=== PATIENT | female | born 1935 | race Caucasian/White ===

== ENCOUNTER 2017-01-25 09:10 | Emergency (ER) | payer BC ==
[2017-01-25 09:24] VITALS: BP 135/74; PULSE 96; TEMP 97.8; BMI 20.9
[2017-01-25] MEDS ORDERED: ACETAMINOPHEN 325 MG TABLET (FP) PO ONE (10:15)
[2017-01-25] MEDS ORDERED: ACETAMINOPHEN 325 MG TABLET (FP) ONE (10:19)
--- NOTE | 2017-01-25 10:21 | PDOC ---
History of Present Illness - General Chief Complaint: Pain, Acute Stated Complaint: PAIN/ BACK, LT FOOT Time Seen by Provider: 01/25/17 10:03 History Source: Patient Exam Limitations: No Limitations - History of Present Illness Initial Comments: 01/25/17 19:11 Chief complaint: Left-sided lower back pain and left lowerleg pain History of PRESENT ILLNESS: She is an 81-year-old female with history of arthritis here today complaining of left lower back pain for the last 3 days after trying to leFT us her daughter from the floor. Reports that she also feels pain and left lower leg however no no pain in left buttocks or left thigh. Patient denies any numbness of left leg or weakness of left leg. Patient denies any saddle anesthesia, incontinency. Has not taken anything for pain. . 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 ) Modifying Factors: improves with: immobilization Loss of Consciousness: no loss of consciousness Associated Symptoms (Fall): trouble walking (using a cane now ) Past History - Past Medical History Allergies/Adverse Reactions: Allergies Allergy/AdvReac Type Severity Reaction Status Date / Time Sulfa (Sulfonamide Allergy Intermediate Rash Verified 01/25/17 09:21 Antibiotics) [Sulfa(Sulfonamide Antibiotics)] Penicillins Allergy Hives Verified 01/25/17 09:21 Home Medications: Ambulatory Orders Allopurinol [Zyloprim -] 100 mg PO DAILY #0 tablet 04/08/12 Atorvastatin Ca [Lipitor] 20 mg PO HS #0 tablet 04/08/12 Lisinopril [Prinivil] 10 mg PO DAILY #0 tablet 04/08/12 Omeprazole [Prilosec (RX)] 20 mg PO DAILY 07/12/12 Anemia: No Asthma: No Cancer: Yes (SKIN CANCER) Cardiac Disorders: No CVA: No COPD: No CHF: No DVT: No Dementia: No Diabetes: No GI Disorders: Yes (stomach ulcer yrs ago) Disorders: Yes HTN: Yes Hypercholesterolemia: Yes Liver Disease: No Seizures: No Thyroid Disease: No Other medical history: gout - Surgical History Abdominal Surgery: No Appendectomy: No Cardiac Surgery: No Cholecystectomy: No Lung Surgery: No Neurologic Surgery: No Orthopedic Surgery: Yes (HIP REPLACEMENT) - Immunization History Immunization Up to Date: Yes - Suicide/Smoking/Psychosocial Hx Smoking History: Former smoker Have you smoked in the past 12 months: No If you are a former smoker, when did you quit?: 25yrs Information on smoking cessation initiated: No Hx Alcohol Use: No Drug/Substance Use Hx: No Substance Use Type: None Hx Substance Use Treatment: No Review of Systems - Review of Systems Able to Perform ROS?: Yes Constitutional: No: Symptoms Reported HEENTM: No: Symptoms Reported Respiratory: No: Symptoms reported Cardiac (ROS): No: Symptoms Reported ABD/GI: No: Symptoms Reported : No: Symptoms Reported Musculoskeletal: Yes: Back Pain, Joint Pain (left lower back ), Other (left lower lateral leg) Integumentary: No: Symptoms Reported Neurological: No: Symptoms reported *Physical Exam - Vital Signs Last Vital Signs Temp Pulse Resp BP Pulse Ox 97.8 F 96 H 14 135/74 98 01/25/17 09:21 01/25/17 09:21 01/25/17 09:21 01/25/17 09:21 01/25/17 09:21 - Physical Exam General Appearance: Yes: Appropriately Dressed Respiratory/Chest: positive: Lungs Clear, Normal Breath Sounds. negative: Chest Tender, Respiratory Distress Cardiovascular: positive: Regular Rhythm, Regular Rate, S1, S2 Vascular Pulses: Doralis-Pedis (L): 4+ Musculoskeletal: positive: Decreased Range of Motion (at waist with flexion ). negative: CVA Tenderness, CVA Tenderness (R), CVA Tenderness (L), Vertebral Tenderness Extremity: positive: Normal Capillary Refill, Normal Inspection, Normal Range of Motion Integumentary: positive: Normal Color Neurologic: positive: Alert, Normal Response, Motor Strength 5/5 (b/l legs ), Respond to painful stimul (b/l legs ), Responsive, Other (negative SLR b/l ). negative: Numbness, Sensory Deficit ED Treatment Course - RADIOLOGY Radiology Studies Ordered: Category Date Time Status SPINE-LUMBAR SACRAL [RAD] Stat Radiology 01/25/17 10:15 Ordered Medical Decision Making - Medical Decision Making 01/25/17 11:30 She is an 81-year-old female with history of arthritis here today complaining of left lower back pain for the last 3 days after trying to leFT us her daughter from the floor. Reports that she also feels pain and left lower leg however no no pain in left buttocks or left thigh. Patient denies any numbness of left leg or weakness of left leg. Patient denies any saddle anesthesia, incontinency. Has not taken anything for pain. . 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 arthritis noted Will have patient follow up with orthopedist within the next 2 days for further evaluation 01/25/17 19:14 *DC/Admit/Observation/Transfer Diagnosis at time of Disposition: Lumbar pain with radiation down left leg - Discharge Dispostion Disposition: HOME Condition at time of disposition: Stable - Referrals Referrals: Milad Turner MD [Primary Care Provider] - Guillaume Avendaño MD [Staff Physician] - - Patient Instructions Additional Instructions: 'Avoid any strenuous activities or a lot of walking Follow up with orthopedist as soon as possible call for an appointment today told him that she was seen here in the emergency room and need follow-up Return to emergency room if any numbness or weakness of left leg or numbness of private area or loss of control of bladder or bowel movement Take acetaminophen as needed as directed by manager e learning for pain Patient voiced understanding of discharge instructions and all questions were answered Thank you for choosing [facility] emergency room for further medical needs today - Post Discharge Activity
== END 2017-01-25 11:34 | disposition home or self-care (01) ==
LOC: JERFT 09:10
DX: M54.16 Radiculopathy, lumbar region (principal); M46.87 Other specified inflammatory spondylopathies, lumbosacral region; I10 Essential (primary) hypertension; E78.00 Pure hypercholesterolemia, unspecified; M10.9 Gout, unspecified; Z85.828 Personal history of other malignant neoplasm of skin; Z87.19 Personal history of other diseases of the digestive system; Z96.649 Presence of unspecified artificial hip joint; R26.89 Other abnormalities of gait and mobility; Z99.89 Dependence on other enabling machines and devices; Z87.891 Personal history of nicotine dependence
CPT/HCPCS: 72100-TC; 99281-25

== ENCOUNTER 2020-08-25 11:19 | Inpatient (IN) | payer BC ==
[2020-08-25] MEDS ORDERED: ONDANSETRON 4 MG/2 ML VIAL ONE (11:28)
[2020-08-25] MEDS ORDERED: ONDANSETRON 4 MG/2 ML VIAL IVPUSH ONE (11:30)
[2020-08-25] MEDS ORDERED: ACETAMINOPHEN 1000 MG/100 ML VIAL (NON FORMULARY) IVPB ONE (11:48)
[2020-08-25] MEDS ORDERED: VANCOMYCIN 1 GM in D5W (PRE-DOCKED) 1,000 MG/250 ML IVPB ONE (11:56)
[2020-08-25] MEDS ORDERED: AZTREONAM 1 GM VIAL (RESTRICTED TO ID) IVPB ONE (11:59)
[2020-08-25] MEDS ORDERED: ACETAMINOPHEN INJECTION 100 ML IVPB ONE (11:59)
[2020-08-25 12:07] VITALS: BMI 23.0
[2020-08-25] MEDS ORDERED: AZTREONAM 1 GM VIAL (RESTRICTED TO ID) ONE (12:18)
[2020-08-25] MEDS ORDERED: VANCOMYCIN 1 GRAM (PRE-DOCKED) 1,000 MG/250 ML BAG IVPB ONE (12:31)
[2020-08-25 13:10] LABS: BASO % 0.5 % (0-2.0); EOS % 0.3 % (0-4.5); HEMATOCRIT 41.7 % (32.4-45.2); HEMOGLOBIN 13.8 GM/dL (10.7-15.3); LYMPH % 20.6 % (8-40); MCH 30.7 pg (25.7-33.7); MEAN PLT VOLUME 8.9 fl (7.5-11.1); MONO % 3.5 % (3.8-10.2); NEUT % 75.1 % (42.8-82.8); PLATELET COUNT 248 10^3/uL (134-434); RBC 4.48 M/mm3 (3.60-5.2); RDW 14.3 % (11.6-15.6); WHITE BLOOD COUNT 14.4 K/mm3 (4.0-10.0)
[2020-08-25 13:19] LABS: EPI CELLS 6 /uL (0-25.1); HYALINE CASTS 1 /uL (0-3.1); PH,URINE 5.5 (5.0-8.0); URINE APPEARANCE CLOUDY; URINE BACTERIA >9,000 /uL (0-1359); URINE BILIRUBIN NEGATIVE (NEGATIVE); URINE COLOR YELLOW; URINE GLUCOSE (UA) NEGATIVE (NEGATIVE); URINE KETONE NEGATIVE (NEGATIVE); URINE LEUK ESTERASE 2+ (NEGATIVE); URINE NITRITE POSITIVE (NEGATIVE); URINE PROTEIN 3+ (NEGATIVE); URINE RBC 34 /uL (0-23.9); URINE UROBILINOGEN 0.2 mg/dL (0.2-1.0); URINE WBC 675 /uL (0-25.8)
[2020-08-25 13:39] LABS: VENOUS BASE EXCESS -8.9 mmol/L (-2-2); VENOUS O2 SATURATION 22.7 % (70-80); VENOUS PCO2 48.7 mmHg (38-52); VENOUS PH 7.212 (7.310-7.410)
[2020-08-25 13:39] LABS: LACTIC ACID 5.6 mmol/L (0.4-2.0)
[2020-08-25] MEDS ORDERED: SODIUM CHLORIDE 0.9% 500 ML INFUS.BAG IV ONE (13:42)
[2020-08-25 13:45] LABS: INR 1.02 (0.83-1.09); PROTHROMBIN TIME (PATIENT) 12.3 SEC (9.7-13.0)
[2020-08-25 13:48] LABS: ACTIVATED PTT 27.3 SECONDS (25.2-36.5)
[2020-08-25 13:56] LABS: CHLORIDE 102 mmol/L (98-107); SODIUM 137 mmol/L (136-145)
[2020-08-25 13:58] LABS: CALCIUM 10.2 mg/dL (8.5-10.1)
[2020-08-25 13:59] LABS: ANION GAP 13 MMOL/L (8-16); CO2 22 mmol/L (21-32); GLUCOSE,RANDOM 110 mg/dL (74-106)
[2020-08-25 14:02] LABS: CREATININE 1.6 mg/dL (0.55-1.3); SGOT/AST 72 U/L (15-37); SGPT/ALT 34 U/L (13-61)
[2020-08-25 14:04] LABS: BILIRUBIN,TOTAL 1.2 mg/dL (0.2-1); TOT PROT 7.7 g/dl (6.4-8.2)
[2020-08-25 14:05] LABS: ALK PHOS 104 U/L (45-117)
[2020-08-25] MEDS ORDERED: SODIUM CHLORIDE 500 ML IV STA ×2 (14:32→20:07)
[2020-08-25] MEDS ORDERED: ACETAMINOPHEN 500 MG TABLET (FP) PO PRN (18:42)
[2020-08-25] MEDS ORDERED: SODIUM CHLORIDE 1,000 ML IV SCH (18:45)
[2020-08-25] MEDS ORDERED: amLODIPine BESYLATE 5 MG TABLET (FP) PO PRN (20:10)
[2020-08-25] MEDS: ATORVASTATIN CA 20 MG TABLET (FP) PO SCH (22:27)
[2020-08-26] MEDS ORDERED: AZTREONAM 1 GM VIAL (RESTRICTED TO ID) ONE ×2 (01:05→08:22)
[2020-08-26] MEDS ORDERED: DEXTROSE 5%-WATER - 50 ML IVPB ONE ×2 (01:06→08:23)
[2020-08-26] MEDS: AZTREONAM 1 GM in DEXTROSE 5%-WATER - 50 ML IVPB SCH ×2 (01:17→09:08)
[2020-08-26] MEDS ORDERED: AZTREONAM 1 GM in DEXTROSE 5%-WATER - 50 ML IVPB SCH ×2 (02:00→19:00)
[2020-08-26] MEDS: HEPARIN NA (PORCINE) 5,000 UNITS/ML 1ML VIAL SQ SCH ×3 (05:23→21:33)
[2020-08-26 07:31] LABS: HEMATOCRIT 36.4 % (32.4-45.2); MCH 30.9 pg (25.7-33.7); MCHC 33.1 g/dl (32.0-36.0); MEAN CELL VOLUME 93.4 fl (80-96); MEAN PLT VOLUME 8.6 fl (7.5-11.1); PLATELET COUNT 191 10^3/uL (134-434); RBC 3.89 M/mm3 (3.60-5.2); WHITE BLOOD COUNT 14.9 K/mm3 (4.0-10.0)
[2020-08-26 07:46] LABS: CALCIUM 8.9 mg/dL (8.5-10.1)
[2020-08-26 07:47] LABS: BLOOD UREA NITROGEN 24.5 mg/dL (7-18); MAGNESIUM 2.2 mg/dL (1.8-2.4)
[2020-08-26 07:50] LABS: CREATININE 1.2 mg/dL (0.55-1.3); PHOSPHOROUS 2.6 mg/dL (2.5-4.9)
[2020-08-26] MEDS ORDERED: LACTATED RINGERS SOLUTION 1,000 ML/1,000 ML INFUS.BAG IV SCH (09:45)
[2020-08-26] MEDS ORDERED: MEROPENEM 500 MG VIAL (RESTRICTED TO ID) IVPB ONE ×2 (09:53→17:21)
[2020-08-26] MEDS ORDERED: DEXTROSE 5%-WATER 100 ML IVPB ONE ×2 (09:53→17:21)
[2020-08-26] MEDS: MEROPENEM 500 MG in DEXTROSE 5%-WATER 100 ML IVPB SCH ×2 (09:55→17:27)
[2020-08-26] MEDS ORDERED: LISINOPRIL 10 MG TABLET PO SCH (10:00)
[2020-08-26] MEDS ORDERED: FUROSEMIDE 40 MG/4 ML INJECTABLE VIAL IVPUSH ONE (19:27)
[2020-08-26] MEDS: LACTATED RINGERS SOLUTION 1,000 ML/1,000 ML INFUS.BAG IV SCH (20:01)
[2020-08-26] MEDS: ATORVASTATIN CA 20 MG TABLET (FP) PO SCH (21:33)
[2020-08-27] MEDS ORDERED: DEXTROSE 5%-WATER 100 ML IVPB ONE ×3 (01:10→17:37)
[2020-08-27] MEDS ORDERED: MEROPENEM 500 MG VIAL (RESTRICTED TO ID) IVPB ONE ×3 (01:10→17:37)
[2020-08-27] MEDS: MEROPENEM 500 MG in DEXTROSE 5%-WATER 100 ML IVPB SCH ×3 (01:24→17:44)
[2020-08-27 06:27] LABS: ARTERIAL BLOOD GAS BASE EXCESS 0.3 mmol/L (-2-2); ARTERIAL BLOOD GAS PO2 102.4 mmHg (80-100); ARTERIAL BLOOD GAS pH 7.462 (7.350-7.450)
[2020-08-27] MEDS: HEPARIN NA (PORCINE) 5,000 UNITS/ML 1ML VIAL SQ SCH ×3 (06:28→21:02)
[2020-08-27 06:39] LABS: ALLENS TEST POSITIVE
[2020-08-27 07:29] LABS: BASO % 0.9 % (0-2.0); EOS % 1.1 % (0-4.5); HEMATOCRIT 39.1 % (32.4-45.2); LYMPH % 23.2 % (8-40); MCH 30.8 pg (25.7-33.7); MCHC 33.4 g/dl (32.0-36.0); MEAN CELL VOLUME 92.3 fl (80-96); MEAN PLT VOLUME 9.3 fl (7.5-11.1); MONO % 12.5 % (3.8-10.2); NEUT % 62.3 % (42.8-82.8); PLATELET COUNT 224 10^3/uL (134-434); RBC 4.23 M/mm3 (3.60-5.2); RDW 14.1 % (11.6-15.6); WHITE BLOOD COUNT 13.1 K/mm3 (4.0-10.0)
[2020-08-27 07:57] LABS: CALCIUM 9.1 mg/dL (8.5-10.1)
[2020-08-27 07:58] LABS: BLOOD UREA NITROGEN 19.8 mg/dL (7-18); MAGNESIUM 1.9 mg/dL (1.8-2.4)
[2020-08-27 08:00] LABS: CREATININE 1.3 mg/dL (0.55-1.3)
[2020-08-27 08:01] LABS: PHOSPHOROUS 2.2 mg/dL (2.5-4.9)
[2020-08-27 08:02] LABS: BILIRUBIN,TOTAL 0.9 mg/dL (0.2-1); TOT PROT 5.9 g/dl (6.4-8.2)
[2020-08-27 08:29] LABS: ALBUMIN 2.7 g/dl (3.4-5.0)
[2020-08-27] MEDS: ATORVASTATIN CA 20 MG TABLET (FP) PO SCH (21:02)
[2020-08-27] MEDS: FUROSEMIDE 20 MG TABLET (FP) PO SCH (21:02)
[2020-08-27] MEDS: LIDOCAINE 5% TOPICAL PATCH TP SCH (21:02)
[2020-08-27] MEDS: POTASSIUM CHLORIDE TABS 10 MEQ TABLET.ER (FP) PO SCH (21:02)
[2020-08-27] MEDS: LACTATED RINGERS SOLUTION 1,000 ML/1,000 ML INFUS.BAG IV SCH (21:03)
[2020-08-27] MEDS: LIDOCAINE PATCH REMOVAL MC SCH (21:03)
[2020-08-28] MEDS ORDERED: MEROPENEM 500 MG VIAL (RESTRICTED TO ID) IVPB ONE ×3 (01:10→16:56)
[2020-08-28] MEDS ORDERED: DEXTROSE 5%-WATER 100 ML IVPB ONE ×3 (01:11→16:56)
[2020-08-28] MEDS: MEROPENEM 500 MG in DEXTROSE 5%-WATER 100 ML IVPB SCH ×3 (01:50→17:41)
[2020-08-28] MEDS: HEPARIN NA (PORCINE) 5,000 UNITS/ML 1ML VIAL SQ SCH ×3 (05:41→21:29)
[2020-08-28] MEDS: LACTATED RINGERS SOLUTION 1,000 ML/1,000 ML INFUS.BAG IV SCH ×2 (05:41→21:29)
[2020-08-28 06:37] LABS: BASO % 0.7 % (0-2.0); EOS % 2.6 % (0-4.5); HEMATOCRIT 39.2 % (32.4-45.2); LYMPH % 26.9 % (8-40); MCH 30.6 pg (25.7-33.7); MCHC 33.2 g/dl (32.0-36.0); MEAN CELL VOLUME 92.1 fl (80-96); MEAN PLT VOLUME 9.1 fl (7.5-11.1); MONO % 13.1 % (3.8-10.2); NEUT % 56.7 % (42.8-82.8); PLATELET COUNT 246 10^3/uL (134-434); RBC 4.25 M/mm3 (3.60-5.2); RDW 13.8 % (11.6-15.6); WHITE BLOOD COUNT 13.4 K/mm3 (4.0-10.0)
[2020-08-28 07:04] LABS: CALCIUM 8.8 mg/dL (8.5-10.1)
[2020-08-28 07:05] LABS: BLOOD UREA NITROGEN 26.1 mg/dL (7-18)
[2020-08-28 07:08] LABS: CREATININE 1.1 mg/dL (0.55-1.3)
[2020-08-28 09:42] LABS: ANISOCYTOSIS 0; MACROCYTOSIS 0; PLATELET ESTIMATE NORMAL
[2020-08-28] MEDS: LIDOCAINE 5% TOPICAL PATCH TP SCH (10:10)
[2020-08-28] MEDS: FUROSEMIDE 20 MG TABLET (FP) PO SCH (10:10)
[2020-08-28] MEDS: POTASSIUM CHLORIDE TABS 10 MEQ TABLET.ER (FP) PO SCH (10:10)
[2020-08-28] MEDS: LACTOBACILLUS ACIDOPHILUS 1 TABLET PO SCH (21:28)
[2020-08-28] MEDS: ATORVASTATIN CA 20 MG TABLET (FP) PO SCH (21:29)
[2020-08-28] MEDS: LIDOCAINE PATCH REMOVAL MC SCH (21:37)
[2020-08-29] MEDS ORDERED: MEROPENEM 500 MG VIAL (RESTRICTED TO ID) IVPB ONE ×3 (01:12→17:09)
[2020-08-29] MEDS ORDERED: DEXTROSE 5%-WATER 100 ML IVPB ONE ×3 (01:13→17:09)
[2020-08-29] MEDS: MEROPENEM 500 MG in DEXTROSE 5%-WATER 100 ML IVPB SCH ×3 (01:33→17:18)
[2020-08-29] MEDS: HEPARIN NA (PORCINE) 5,000 UNITS/ML 1ML VIAL SQ SCH ×2 (05:46→13:21)
[2020-08-29] MEDS: LACTATED RINGERS SOLUTION 1,000 ML/1,000 ML INFUS.BAG IV SCH ×3 (05:47→19:44)
[2020-08-29] MEDS ORDERED: dilTIAZem HCL 25 MG/5 ML - 5 ML VIAL IVPUSH ONE (06:32)
[2020-08-29 06:46] LABS: BASO % 0.6 % (0-2.0); EOS % 1.2 % (0-4.5); HEMATOCRIT 41.5 % (32.4-45.2); LYMPH % 30.6 % (8-40); MCH 30.6 pg (25.7-33.7); MCHC 33.7 g/dl (32.0-36.0); MEAN CELL VOLUME 90.8 fl (80-96); MEAN PLT VOLUME 8.2 fl (7.5-11.1); MONO % 14.7 % (3.8-10.2); NEUT % 52.9 % (42.8-82.8); PLATELET COUNT 265 10^3/uL (134-434); RBC 4.57 M/mm3 (3.60-5.2); WHITE BLOOD COUNT 13.7 K/mm3 (4.0-10.0)
[2020-08-29] MEDS ORDERED: DILTIAZEM INJECTION 125 MG in DEXTROSE 5%-WATER - 100 ML IVPB SCH (07:00)
[2020-08-29 07:07] LABS: BLOOD UREA NITROGEN 21.9 mg/dL (7-18); MAGNESIUM 1.9 mg/dL (1.8-2.4)
[2020-08-29 07:10] LABS: CREATININE 1.1 mg/dL (0.55-1.3)
[2020-08-29] MEDS: LACTOBACILLUS ACIDOPHILUS 1 TABLET PO SCH (10:01)
[2020-08-29] MEDS: POTASSIUM CHLORIDE TABS 10 MEQ TABLET.ER (FP) PO SCH (10:01)
[2020-08-29] MEDS: FUROSEMIDE 20 MG TABLET (FP) PO SCH (10:01)
[2020-08-29] MEDS: LIDOCAINE 5% TOPICAL PATCH TP SCH (10:04)
[2020-08-29] MEDS ORDERED: PT OWN MED DRAWER 7, Y5N ONE (10:09)
[2020-08-29] MEDS: dilTIAZem HCL 30 MG TABLET PO SCH ×2 (14:32→21:27)
[2020-08-29] MEDS: APIXABAN 2.5 MG TABLET PO SCH ×2 (14:32→21:26)
[2020-08-29] MEDS: LIDOCAINE PATCH REMOVAL MC SCH (21:27)
[2020-08-29] MEDS: ATORVASTATIN CA 20 MG TABLET (FP) PO SCH (21:27)
[2020-08-30] MEDS ORDERED: DEXTROSE 5%-WATER 100 ML IVPB ONE ×3 (00:49→17:06)
[2020-08-30] MEDS ORDERED: MEROPENEM 500 MG VIAL (RESTRICTED TO ID) IVPB ONE ×3 (00:49→17:06)
[2020-08-30] MEDS: MEROPENEM 500 MG in DEXTROSE 5%-WATER 100 ML IVPB SCH ×3 (01:03→17:23)
[2020-08-30] MEDS: dilTIAZem HCL 30 MG TABLET PO SCH ×2 (05:49→13:07)
[2020-08-30 07:13] LABS: BASO % 0.6 % (0-2.0); EOS % 2.4 % (0-4.5); HEMATOCRIT 40.3 % (32.4-45.2); HEMOGLOBIN 13.2 GM/dL (10.7-15.3); LYMPH % 32.4 % (8-40); MCH 30.3 pg (25.7-33.7); MCHC 32.8 g/dl (32.0-36.0); MEAN CELL VOLUME 92.4 fl (80-96); MONO % 12.8 % (3.8-10.2); NEUT % 51.8 % (42.8-82.8); PLATELET COUNT 303 10^3/uL (134-434); RBC 4.36 M/mm3 (3.60-5.2); RDW 13.8 % (11.6-15.6); WHITE BLOOD COUNT 12.5 K/mm3 (4.0-10.0)
[2020-08-30 07:30] LABS: BLOOD UREA NITROGEN 21.6 mg/dL (7-18); CALCIUM 9.2 mg/dL (8.5-10.1)
[2020-08-30] MEDS: APIXABAN 2.5 MG TABLET PO SCH (09:30)
[2020-08-30] MEDS: POTASSIUM CHLORIDE TABS 10 MEQ TABLET.ER (FP) PO SCH (09:30)
[2020-08-30] MEDS: FUROSEMIDE 20 MG TABLET (FP) PO SCH (09:31)
[2020-08-30] MEDS: LACTOBACILLUS ACIDOPHILUS 1 TABLET PO SCH (09:31)
[2020-08-30] MEDS: LIDOCAINE 5% TOPICAL PATCH TP SCH (09:31)
[2020-08-30] MEDS: LACTATED RINGERS SOLUTION 1,000 ML/1,000 ML INFUS.BAG IV SCH (12:55)
[2020-08-30] MEDS ORDERED: MAG HYDROX/AL HYDROX/SIMETH 30 ML UNIT-DOSE CUP PO PRN (18:08)
[2020-08-30] MEDS: ONDANSETRON 4 MG/2 ML VIAL IVPUSH SCH (18:52)
[2020-08-30] MEDS: PANTOPRAZOLE SODIUM 40 MG VIAL IVPUSH SCH (21:01)
[2020-08-30] MEDS: ATORVASTATIN CA 20 MG TABLET (FP) PO SCH (21:33)
[2020-08-30] MEDS: LIDOCAINE PATCH REMOVAL MC SCH (21:35)
[2020-08-31] MEDS ORDERED: MEROPENEM 500 MG VIAL (RESTRICTED TO ID) IVPB ONE ×3 (02:03→17:50)
[2020-08-31] MEDS ORDERED: DEXTROSE 5%-WATER 100 ML IVPB ONE ×3 (02:03→17:51)
[2020-08-31] MEDS: MEROPENEM 500 MG in DEXTROSE 5%-WATER 100 ML IVPB SCH ×3 (02:06→18:03)
[2020-08-31] MEDS: ONDANSETRON 4 MG/2 ML VIAL IVPUSH SCH ×3 (03:11→18:03)
[2020-08-31 08:18] LABS: BASO % 0.5 % (0-2.0); EOS % 1.4 % (0-4.5); HEMATOCRIT 39.3 % (32.4-45.2); HEMOGLOBIN 12.9 GM/dL (10.7-15.3); LYMPH % 20.7 % (8-40); MCH 30.4 pg (25.7-33.7); MCHC 32.8 g/dl (32.0-36.0); MEAN CELL VOLUME 92.8 fl (80-96); MEAN PLT VOLUME 8.7 fl (7.5-11.1); MONO % 12.2 % (3.8-10.2); NEUT % 65.2 % (42.8-82.8); PLATELET COUNT 359 10^3/uL (134-434); RBC 4.24 M/mm3 (3.60-5.2); RDW 13.9 % (11.6-15.6); WHITE BLOOD COUNT 15.7 K/mm3 (4.0-10.0)
[2020-08-31 08:43] LABS: ALBUMIN 2.6 g/dl (3.4-5.0)
[2020-08-31 08:45] LABS: CALCIUM 9.1 mg/dL (8.5-10.1)
[2020-08-31 08:46] LABS: BILIRUBIN,DIRECT 0.2 mg/dL (0.0-0.2); BLOOD UREA NITROGEN 18.6 mg/dL (7-18)
[2020-08-31 08:48] LABS: BILIRUBIN,TOTAL 0.6 mg/dL (0.2-1)
[2020-08-31] MEDS: LACTOBACILLUS ACIDOPHILUS 1 TABLET PO SCH (10:17)
[2020-08-31] MEDS: FUROSEMIDE 20 MG TABLET (FP) PO SCH (10:18)
[2020-08-31] MEDS: PANTOPRAZOLE SODIUM 40 MG VIAL IVPUSH SCH ×2 (10:18→21:17)
[2020-08-31] MEDS: LIDOCAINE 5% TOPICAL PATCH TP SCH (10:18)
[2020-08-31] MEDS: ATORVASTATIN CA 20 MG TABLET (FP) PO SCH (21:18)
[2020-08-31] MEDS: LIDOCAINE PATCH REMOVAL MC SCH (21:18)
[2020-09-01] MEDS ORDERED: DEXTROSE 5%-WATER 100 ML IVPB ONE ×3 (02:34→09:27)
[2020-09-01] MEDS ORDERED: MEROPENEM 500 MG VIAL (RESTRICTED TO ID) IVPB ONE ×3 (02:34→09:27)
[2020-09-01] MEDS: MEROPENEM 500 MG in DEXTROSE 5%-WATER 100 ML IVPB SCH ×2 (02:40→09:38)
[2020-09-01] MEDS: ONDANSETRON 4 MG/2 ML VIAL IVPUSH SCH ×3 (02:59→17:39)
[2020-09-01 06:43] LABS: BASO % 0.9 % (0-2.0); EOS % 3.3 % (0-4.5); HEMATOCRIT 41.4 % (32.4-45.2); HEMOGLOBIN 13.5 GM/dL (10.7-15.3); LYMPH % 24.6 % (8-40); MCH 30.2 pg (25.7-33.7); MCHC 32.7 g/dl (32.0-36.0); MEAN CELL VOLUME 92.1 fl (80-96); MEAN PLT VOLUME 8.3 fl (7.5-11.1); MONO % 10.7 % (3.8-10.2); NEUT % 60.5 % (42.8-82.8); PLATELET COUNT 370 10^3/uL (134-434); RBC 4.49 M/mm3 (3.60-5.2); RDW 14.4 % (11.6-15.6); WHITE BLOOD COUNT 14.1 K/mm3 (4.0-10.0)
[2020-09-01 06:55] LABS: BLOOD UREA NITROGEN 20.5 mg/dL (7-18); CALCIUM 9.6 mg/dL (8.5-10.1)
[2020-09-01 06:59] LABS: CREATININE 1.2 mg/dL (0.55-1.3)
[2020-09-01] MEDS: LIDOCAINE 5% TOPICAL PATCH TP SCH (10:37)
[2020-09-01] MEDS: PANTOPRAZOLE SODIUM 40 MG VIAL IVPUSH SCH ×2 (10:37→21:25)
[2020-09-01] MEDS: LACTOBACILLUS ACIDOPHILUS 1 TABLET PO SCH (10:37)
[2020-09-01] MEDS: FUROSEMIDE 20 MG TABLET (FP) PO SCH (10:37)
[2020-09-01] MEDS: CEFUROXIME AXETIL 500 MG TABLET PO SCH (17:39)
[2020-09-01] MEDS: ATORVASTATIN CA 20 MG TABLET (FP) PO SCH (21:25)
[2020-09-01] MEDS: LIDOCAINE PATCH REMOVAL MC SCH (21:25)
[2020-09-02] MEDS: ONDANSETRON 4 MG/2 ML VIAL IVPUSH SCH ×2 (01:23→09:25)
[2020-09-02] MEDS ORDERED: PT OWN MED DRAWER 7, Y5N ONE (08:34)
[2020-09-02] MEDS: CEFUROXIME AXETIL 500 MG TABLET PO SCH (08:51)
[2020-09-02] MEDS: LIDOCAINE 5% TOPICAL PATCH TP SCH (09:01)
[2020-09-02] MEDS: PANTOPRAZOLE SODIUM 40 MG VIAL IVPUSH SCH (09:01)
[2020-09-02] MEDS: LACTOBACILLUS ACIDOPHILUS 1 TABLET PO SCH (09:02)
[2020-09-02 10:07] VITALS: BP 149/71; PULSE 77; TEMP 98.1
== END 2020-09-02 13:25 | disposition home health service (06) | DRG 872 ==
LOC: JER 11:19 → JERBED 11:50 → J4S 22:04
PROVIDERS: ATTEND Internal Medicine
DX: A41.50 Gram-negative sepsis, unspecified (principal); N39.0 Urinary tract infection, site not specified; E87.2 Acidosis; I47.1 Supraventricular tachycardia; I48.92 Unspecified atrial flutter; I24.8 Other forms of acute ischemic heart disease; R65.20 Severe sepsis without septic shock; E78.5 Hyperlipidemia, unspecified; Z88.0 Allergy status to penicillin; K21.9 Gastro-esophageal reflux disease without esophagitis; M10.9 Gout, unspecified; I10 Essential (primary) hypertension; G89.29 Other chronic pain; Z90.5 Acquired absence of kidney; F03.90 Unspecified dementia, unspecified severity, without behavioral disturbance, psychotic disturbance, mood disturbance, and anxiety; K29.70 Gastritis, unspecified, without bleeding; I48.91 Unspecified atrial fibrillation; R73.03 Prediabetes
CPT/HCPCS: 36415; 36600; 71045-TC-FY; 76705-TC; 76775-TC; 76856-TC; 80048; 80053; 80061; 80076; 81003; 82553; 82803; 83036; 83605; 83721; 83735; 83880; 84100; 84443; 84484; 85025; 85027; 85610; 85730; 86850; 86900; 86901; 87040; 87086; 87186; 93005; 93010; 93306-TC; 93970-TC; 97116-GP; 97161-GP; 99285-25; C9803; J0131; J1644; U0003; U0005

== ENCOUNTER 2020-10-13 11:30 | Observation (INO) | payer BC ==
[2020-10-13 11:45] VITALS: BMI 22.6
[2020-10-13] MEDS ORDERED: MAG HYDROX/AL HYDROX/SIMETH -MYLANTA- ORAL SUSPENSION PO ONE (12:14)
[2020-10-13] MEDS ORDERED: FAMOTIDINE 20 MG TABLET PO ONE (12:14)
[2020-10-13] MEDS ORDERED: FAMOTIDINE 20 MG/50 ML IVPB 20 MG/50 ML MG IVPB ONE ×2 (12:17→12:18)
[2020-10-13] MEDS ORDERED: MAG HYDROX/AL HYDROX/SIMETH 30 ML UNIT-DOSE CUP ONE (12:17)
[2020-10-13 12:31] LABS: INR 1.38 (0.83-1.09); PROTHROMBIN TIME (PATIENT) 16.5 SEC (9.7-13.0)
[2020-10-13 12:33] LABS: ACTIVATED PTT 31.5 SECONDS (25.2-36.5)
[2020-10-13 12:42] LABS: ALBUMIN 3.8 g/dl (3.4-5.0); ANION GAP 7 MMOL/L (8-16); BLOOD UREA NITROGEN 26.8 mg/dL (7-18); CALCIUM 9.8 mg/dL (8.5-10.1); CHLORIDE 104 mmol/L (98-107); CO2 25 mmol/L (21-32); SODIUM 136 mmol/L (136-145)
[2020-10-13 12:43] LABS: GLUCOSE,RANDOM 114 mg/dL (74-106)
[2020-10-13 12:45] LABS: SGPT/ALT 25 U/L (13-61)
[2020-10-13 12:46] LABS: CREATININE 1.3 mg/dL (0.55-1.3); SGOT/AST 22 U/L (15-37)
[2020-10-13 12:47] LABS: BILIRUBIN,TOTAL 0.6 mg/dL (0.2-1); TOT PROT 7.2 g/dl (6.4-8.2)
[2020-10-13 12:48] LABS: ALK PHOS 110 U/L (45-117); BASO % 1.2 % (0-2.0); EOS % 1.6 % (0-4.5); HEMOGLOBIN 13.1 GM/dL (10.7-15.3); LYMPH % 29.9 % (8-40); MCH 31.5 pg (25.7-33.7); MCHC 34.4 g/dl (32.0-36.0); MEAN CELL VOLUME 91.4 fl (80-96); MEAN PLT VOLUME 8.3 fl (7.5-11.1); MONO % 9.8 % (3.8-10.2); NEUT % 57.5 % (42.8-82.8); PLATELET COUNT 279 10^3/uL (134-434); RBC 4.16 M/mm3 (3.60-5.2); RDW 14.2 % (11.6-15.6); WHITE BLOOD COUNT 10.9 K/mm3 (4.0-10.0)
[2020-10-13 19:09] LABS: LIPASE 212 U/L (73-393); MAGNESIUM 2.1 mg/dL (1.8-2.4)
[2020-10-13 19:12] LABS: PHOSPHOROUS 3.2 mg/dL (2.5-4.9)
[2020-10-13] MEDS: traMADol HCL 50 MG TABLET PO SCH (19:50)
[2020-10-13] MEDS ORDERED: ATORVASTATIN CA 20 MG TABLET (FP) PO SCH (22:00)
[2020-10-14] MEDS: APIXABAN 2.5 MG TABLET PO SCH ×2 (01:46→09:26)
[2020-10-14] MEDS: MAG HYDROX/AL HYDROX/SIMETH 30 ML UNIT-DOSE CUP PO SCH ×3 (01:46→12:26)
[2020-10-14] MEDS: traMADol HCL 50 MG TABLET PO SCH ×3 (01:46→12:26)
[2020-10-14 08:05] LABS: BASO % 0.9 % (0-2.0); EOS % 5.3 % (0-4.5); HEMOGLOBIN 13.9 GM/dL (10.7-15.3); LYMPH % 44.3 % (8-40); MCH 31.9 pg (25.7-33.7); MCHC 34.8 g/dl (32.0-36.0); MEAN CELL VOLUME 91.6 fl (80-96); MEAN PLT VOLUME 8.4 fl (7.5-11.1); NEUT % 39.5 % (42.8-82.8); PLATELET COUNT 267 10^3/uL (134-434); RBC 4.37 M/mm3 (3.60-5.2); RDW 14.3 % (11.6-15.6); WHITE BLOOD COUNT 9.9 K/mm3 (4.0-10.0)
[2020-10-14 08:11] LABS: CHLORIDE 109 mmol/L (98-107); SODIUM 138 mmol/L (136-145)
[2020-10-14 08:16] LABS: CALCIUM 9.4 mg/dL (8.5-10.1); GLUCOSE,RANDOM 89 mg/dL (74-106)
[2020-10-14 08:17] LABS: ANION GAP 7 MMOL/L (8-16); BLOOD UREA NITROGEN 21.8 mg/dL (7-18); CO2 23 mmol/L (21-32)
[2020-10-14 08:20] LABS: CREATININE 1.3 mg/dL (0.55-1.3)
[2020-10-14] MEDS ORDERED: ALLOPURINOL 100 MG TABLET (FP) PO SCH (10:00)
[2020-10-14] MEDS ORDERED: PANTOPRAZOLE 20 MG TABLET PO SCH (10:00)
[2020-10-14] MEDS ORDERED: LISINOPRIL 10 MG TABLET PO SCH (10:00)
[2020-10-14 14:39] VITALS: BP 153/68; PULSE 67; TEMP 97.3
== END 2020-10-14 17:25 | disposition home or self-care (01) ==
LOC: JER 11:30 → JERBED 18:21 → J4W 21:07
PROVIDERS: ADMIT Internal Medicine; ATTEND Internal Medicine
PROC: 3E033GC Introduction of Other Therapeutic Substance into Peripheral Vein, Percutaneous Approach (ICD-10-PCS; principal; 2020-10-13)
DX: R07.9 Chest pain, unspecified (principal); Z88.0 Allergy status to penicillin; Z88.2 Allergy status to sulfonamides; K21.9 Gastro-esophageal reflux disease without esophagitis; I48.91 Unspecified atrial fibrillation; E78.5 Hyperlipidemia, unspecified; I10 Essential (primary) hypertension; Z90.5 Acquired absence of kidney
CPT/HCPCS: 36415; 71046-TC-FY; 80048; 80053; 82550; 83690; 83735; 84100; 84484; 85025; 85610; 85730; 93005; 93010; 96365; 99285-25; C9803; G0378; U0003; U0005

== ENCOUNTER 2021-12-22 08:42 | Inpatient (IN) | payer BC ==
[2021-12-22] MEDS ORDERED: LIDOCAINE 5% TOPICAL PATCH TP ONE (09:44)
[2021-12-22] MEDS ORDERED: ACETAMINOPHEN 1000 MG/100 ML BAG IVPB ONE (09:45)
[2021-12-22] MEDS ORDERED: LIDOCAINE 5% TOPICAL PATCH ONE ×2 (09:53)
[2021-12-22] MEDS ORDERED: ACETAMINOPHEN INJECTION 100 ML IVPB ONE (09:53)
[2021-12-22 10:41] LABS: EPI CELLS 7 /uL (0-25.1); HYALINE CASTS 1 /uL (0-3.1); URINE APPEARANCE CLOUDY; URINE BACTERIA >9,000 /uL (0-1359); URINE BILIRUBIN NEGATIVE (NEGATIVE); URINE COLOR YELLOW; URINE GLUCOSE (UA) NEGATIVE (NEGATIVE); URINE KETONE NEGATIVE (NEGATIVE); URINE LEUK ESTERASE 2+ (NEGATIVE); URINE NITRITE POSITIVE (NEGATIVE); URINE PROTEIN 1+ (NEGATIVE); URINE RBC 7 /uL (0-23.9); URINE UROBILINOGEN 0.2 mg/dL (0.2-1.0); URINE WBC 299 /uL (0-25.8)
[2021-12-22] MEDS ORDERED: CEFTRIAXONE 1 GM in DEXTROSE 5%-WATER - 100 ML IVPB ONE (11:30)
[2021-12-22 12:08] LABS: HEMATOCRIT 44.4 % (32.4-45.2); HEMOGLOBIN 14.6 GM/dL (10.7-15.3); MCH 30.7 pg (25.7-33.7); MCHC 32.9 g/dl (32.0-36.0); MEAN CELL VOLUME 93.2 fl (80-96); MEAN PLT VOLUME 8.4 fl (7.5-11.1); PLATELET COUNT 205 10^3/uL (134-434); RBC 4.76 M/mm3 (3.60-5.2); RDW 14.1 % (11.6-15.6); WHITE BLOOD COUNT 7.4 K/mm3 (4.0-10.0)
[2021-12-22 12:28] LABS: ALBUMIN 3.9 g/dl (3.4-5.0); BLOOD UREA NITROGEN 36.6 mg/dL (7-18); CALCIUM 9.8 mg/dL (8.5-10.1)
[2021-12-22] MEDS ORDERED: CEFTRIAXONE 1 GM/50 ML BAG ONE (12:28)
[2021-12-22 12:32] LABS: CREATININE 1.7 mg/dL (0.55-1.3)
[2021-12-22 12:33] LABS: BILIRUBIN,TOTAL 0.6 mg/dL (0.2-1); TOT PROT 7.4 g/dl (6.4-8.2)
[2021-12-22] MEDS ORDERED: SODIUM CHLORIDE 0.9% 500 ML INFUS.BAG IV ONE (12:48)
[2021-12-22 14:28] LABS: ANISOCYTOSIS 0; MACROCYTOSIS 1+
[2021-12-22] MEDS ORDERED: LIDOCAINE PATCH REMOVAL MC SCH (22:00)
[2021-12-22 23:17] VITALS: RESP 18; BMI 21.2
[2021-12-23] MEDS ORDERED: ACETAMINOPHEN 325 MG TABLET (FP) PO PRN (06:49)
[2021-12-23] MEDS ORDERED: VANCOMYCIN 1 GM/200 ML PREMIX BAG IVPB SCH (08:00)
[2021-12-23] MEDS: CEFTRIAXONE 1 GM in DEXTROSE 5%-WATER - 50 ML IVPB SCH (09:34)
[2021-12-23] MEDS: APIXABAN 2.5 MG TABLET PO SCH ×2 (09:34→21:28)
[2021-12-23] MEDS ORDERED: ENOXAPARIN NA (PORCINE) 40 MG/0.4 ML DISP.SYRIN SQ SCH (10:00)
[2021-12-23 10:11] LABS: BASO % 0.7 % (0-2.0); EOS % 0.2 % (0-4.5); HEMATOCRIT 43.7 % (32.4-45.2); HEMOGLOBIN 13.9 GM/dL (10.7-15.3); LYMPH % 32.7 % (8-40); MCH 29.7 pg (25.7-33.7); MCHC 31.7 g/dl (32.0-36.0); MEAN CELL VOLUME 93.9 fl (80-96); MEAN PLT VOLUME 9.2 fl (7.5-11.1); MONO % 14.8 % (3.8-10.2); NEUT % 51.6 % (42.8-82.8); PLATELET COUNT 195 10^3/uL (134-434); RBC 4.66 M/mm3 (3.60-5.2); RDW 14.1 % (11.6-15.6); WHITE BLOOD COUNT 6.6 K/mm3 (4.0-10.0)
[2021-12-23 10:29] LABS: ALBUMIN 3.5 g/dl (3.4-5.0); CALCIUM 8.9 mg/dL (8.5-10.1)
[2021-12-23 10:30] LABS: BLOOD UREA NITROGEN 37.3 mg/dL (7-18)
[2021-12-23 10:31] LABS: CREATININE 1.7 mg/dL (0.55-1.3); PHOSPHOROUS 2.8 mg/dL (2.5-4.9)
[2021-12-23 10:33] LABS: BILIRUBIN,TOTAL 0.4 mg/dL (0.2-1); TOT PROT 6.8 g/dl (6.4-8.2)
[2021-12-23] MEDS: SODIUM CHLORIDE 1,000 ML IV SCH (15:19)
[2021-12-23] MEDS: ASCORBIC ACID 250 MG TABLET (FP) PO SCH (15:20)
[2021-12-23] MEDS: ZINC SULFATE 220 MG CAPSULE (FP) PO SCH (15:20)
[2021-12-23] MEDS: ATORVASTATIN CA 20 MG TABLET (FP) PO SCH (21:28)
[2021-12-24] MEDS ORDERED: VANCOMYCIN 1 GM/200 ML PREMIX BAG IVPB SCH (08:00)
[2021-12-24] MEDS: CEFTRIAXONE 1 GM in DEXTROSE 5%-WATER - 50 ML IVPB SCH (10:18)
[2021-12-24] MEDS: APIXABAN 2.5 MG TABLET PO SCH ×2 (10:19→21:31)
[2021-12-24] MEDS: ASCORBIC ACID 250 MG TABLET (FP) PO SCH (10:19)
[2021-12-24] MEDS: ZINC SULFATE 220 MG CAPSULE (FP) PO SCH (10:19)
[2021-12-24 11:30] LABS: BASO % 0.9 % (0-2.0); EOS % 0.1 % (0-4.5); HEMATOCRIT 43.6 % (32.4-45.2); HEMOGLOBIN 14.6 GM/dL (10.7-15.3); LYMPH % 46.9 % (8-40); MCH 30.7 pg (25.7-33.7); MCHC 33.4 g/dl (32.0-36.0); MEAN PLT VOLUME 8.4 fl (7.5-11.1); MONO % 14.6 % (3.8-10.2); NEUT % 37.5 % (42.8-82.8); PLATELET COUNT 181 10^3/uL (134-434); RBC 4.74 M/mm3 (3.60-5.2); WHITE BLOOD COUNT 6.4 K/mm3 (4.0-10.0)
[2021-12-24 11:55] LABS: CALCIUM 9.3 mg/dL (8.5-10.1)
[2021-12-24 11:57] LABS: ALBUMIN 3.6 g/dl (3.4-5.0); BLOOD UREA NITROGEN 44.8 mg/dL (7-18); MAGNESIUM 2.1 mg/dL (1.8-2.4)
[2021-12-24 11:58] LABS: CREATININE 1.8 mg/dL (0.55-1.3)
[2021-12-24 12:00] LABS: BILIRUBIN,TOTAL 0.3 mg/dL (0.2-1); PHOSPHOROUS 2.8 mg/dL (2.5-4.9); TOT PROT 7.2 g/dl (6.4-8.2)
[2021-12-24] MEDS: ATORVASTATIN CA 20 MG TABLET (FP) PO SCH (21:31)
[2021-12-25] MEDS: SODIUM CHLORIDE 1,000 ML IV SCH (06:15)
[2021-12-25] MEDS: CEFTRIAXONE 1 GM in DEXTROSE 5%-WATER - 50 ML IVPB SCH (09:11)
[2021-12-25] MEDS: ZINC SULFATE 220 MG CAPSULE (FP) PO SCH (09:12)
[2021-12-25] MEDS: APIXABAN 2.5 MG TABLET PO SCH ×2 (09:12→21:33)
[2021-12-25] MEDS: ASCORBIC ACID 250 MG TABLET (FP) PO SCH (09:12)
[2021-12-25 10:57] LABS: BASO % 0.4 % (0-2.0); EOS % 0.5 % (0-4.5); HEMATOCRIT 39.5 % (32.4-45.2); HEMOGLOBIN 13.4 GM/dL (10.7-15.3); LYMPH % 49.5 % (8-40); MCH 31.1 pg (25.7-33.7); MCHC 33.8 g/dl (32.0-36.0); MEAN CELL VOLUME 91.8 fl (80-96); MEAN PLT VOLUME 8.4 fl (7.5-11.1); MONO % 14.5 % (3.8-10.2); NEUT % 35.1 % (42.8-82.8); PLATELET COUNT 157 10^3/uL (134-434); RDW 13.8 % (11.6-15.6); WHITE BLOOD COUNT 4.6 K/mm3 (4.0-10.0)
[2021-12-25 11:18] LABS: CHLORIDE 110 mmol/L (98-107); SODIUM 141 mmol/L (136-145)
[2021-12-25 11:20] LABS: CALCIUM 8.5 mg/dL (8.5-10.1)
[2021-12-25 11:21] LABS: ANION GAP 9 MMOL/L (8-16); BLOOD UREA NITROGEN 39.7 mg/dL (7-18); CO2 21 mmol/L (21-32)
[2021-12-25 11:22] LABS: GLUCOSE,RANDOM 90 mg/dL (74-106)
[2021-12-25 11:24] LABS: CREATININE 1.4 mg/dL (0.55-1.3); PHOSPHOROUS 2.6 mg/dL (2.5-4.9); SGOT/AST 51 U/L (15-37); SGPT/ALT 34 U/L (13-61)
[2021-12-25 11:25] LABS: TOT PROT 6.3 g/dl (6.4-8.2)
[2021-12-25 11:27] LABS: ALK PHOS 86 U/L (45-117)
[2021-12-25 11:41] LABS: BILIRUBIN,TOTAL 0.3 mg/dL (0.2-1)
[2021-12-25] MEDS: ATORVASTATIN CA 20 MG TABLET (FP) PO SCH (21:33)
[2021-12-26] MEDS: SODIUM CHLORIDE 1,000 ML IV SCH (05:14)
[2021-12-26 09:12] VITALS: BP 145/71; PULSE 71; TEMP 98.1
[2021-12-26] MEDS: ASCORBIC ACID 250 MG TABLET (FP) PO SCH (09:45)
[2021-12-26] MEDS: APIXABAN 2.5 MG TABLET PO SCH (09:45)
[2021-12-26] MEDS: ZINC SULFATE 220 MG CAPSULE (FP) PO SCH (09:45)
[2021-12-26] MEDS: CEFTRIAXONE 1 GM in DEXTROSE 5%-WATER - 50 ML IVPB SCH (09:45)
[2021-12-26 13:36] LABS: HEMATOCRIT 42.4 % (32.4-45.2); MCH 30.2 pg (25.7-33.7); MEAN CELL VOLUME 91.5 fl (80-96); MEAN PLT VOLUME 9.1 fl (7.5-11.1); PLATELET COUNT 182 10^3/uL (134-434); RBC 4.63 M/mm3 (3.60-5.2); RDW 14.2 % (11.6-15.6); WHITE BLOOD COUNT 5.3 K/mm3 (4.0-10.0)
[2021-12-26 13:39] LABS: BLOOD UREA NITROGEN 29.3 mg/dL (7-18); CALCIUM 8.9 mg/dL (8.5-10.1); MAGNESIUM 1.8 mg/dL (1.8-2.4)
[2021-12-26 13:42] LABS: CREATININE 1.3 mg/dL (0.55-1.3); PHOSPHOROUS 2.6 mg/dL (2.5-4.9)
== END 2021-12-26 18:48 | disposition home health service (06) | DRG 689 ==
LOC: JER 08:42 → JERBED 18:28 → J6S 20:00 → OBSVTOIN 12-23 06:48 → J6S 12-26 00:11
PROVIDERS: ADMIT Internal Medicine; ATTEND Internal Medicine
DX: N39.0 Urinary tract infection, site not specified (principal); G93.41 Metabolic encephalopathy; U07.1 COVID-19; N17.9 Acute kidney failure, unspecified; I10 Essential (primary) hypertension; E78.00 Pure hypercholesterolemia, unspecified; I48.0 Paroxysmal atrial fibrillation
CPT/HCPCS: 0241U-QW; 36415; 71045-TC-FY; 80048; 80053; 81003; 83735; 84100; 85025; 85027; 86140; 87040; 87086; 87186; 93005; 93010; 97116-GP; 97162-GP; 99285-25; G0378

== ENCOUNTER 2022-02-07 17:48 | Observation (INO) | payer BC ==
[2022-02-07 18:08] VITALS: BMI 21.0
[2022-02-07] MEDS ORDERED: SODIUM CHLORIDE 500 ML IV STA ×2 (18:53→23:43)
[2022-02-07] MEDS ORDERED: CEFTRIAXONE 1,000 MG in DEXTROSE 5%-WATER - 50 ML IVPB ONE (19:06)
[2022-02-07] MEDS ORDERED: CEFTRIAXONE 1 GM/50 ML BAG ONE (19:33)
[2022-02-07 20:35] LABS: BASO % 0.3 % (0-2.0); EOS % 0.6 % (0-4.5); HEMATOCRIT 44.9 % (32.4-45.2); HEMOGLOBIN 14.7 GM/dL (10.7-15.3); LYMPH % 5.8 % (8-40); MCH 30.1 pg (25.7-33.7); MCHC 32.8 g/dl (32.0-36.0); MEAN CELL VOLUME 91.8 fl (80-96); MEAN PLT VOLUME 8.2 fl (7.5-11.1); MONO % 5.1 % (3.8-10.2); NEUT % 88.2 % (42.8-82.8); PLATELET COUNT 268 10^3/uL (134-434); RBC 4.89 M/mm3 (3.60-5.2); RDW 14.3 % (11.6-15.6); WHITE BLOOD COUNT 10.5 K/mm3 (4.0-10.0)
[2022-02-07 20:38] LABS: EPI CELLS 8 /uL (0-25.1); HYALINE CASTS 0 /uL (0-3.1); PH,URINE 6.5 (5.0-8.0); URINE APPEARANCE CLEAR; URINE BACTERIA 23 /uL (0-1359); URINE BILIRUBIN NEGATIVE (NEGATIVE); URINE COLOR YELLOW; URINE GLUCOSE (UA) NEGATIVE (NEGATIVE); URINE KETONE NEGATIVE (NEGATIVE); URINE LEUK ESTERASE NEGATIVE (NEGATIVE); URINE NITRITE NEGATIVE (NEGATIVE); URINE PROTEIN 1+ (NEGATIVE); URINE RBC 5 /uL (0-23.9); URINE UROBILINOGEN 0.2 mg/dL (0.2-1.0); URINE WBC 7 /uL (0-25.8)
[2022-02-07 20:41] LABS: INR 1.19 (0.83-1.09); PROTHROMBIN TIME (PATIENT) 13.7 SEC (9.7-13.0)
[2022-02-07 20:43] LABS: CALCIUM 9.7 mg/dL (8.5-10.1)
[2022-02-07 20:44] LABS: ACTIVATED PTT 29.9 SECONDS (25.2-36.5); ALBUMIN 4.1 g/dl (3.4-5.0); BLOOD UREA NITROGEN 25.8 mg/dL (7-18)
[2022-02-07 20:47] LABS: CREATININE 1.5 mg/dL (0.55-1.3)
[2022-02-07 20:49] LABS: BILIRUBIN,TOTAL 0.9 mg/dL (0.2-1); TOT PROT 7.8 g/dl (6.4-8.2)
[2022-02-08] MEDS ORDERED: APIXABAN 2.5 MG TABLET PO SCH (01:30)
[2022-02-08] MEDS ORDERED: PIPERACILLIN/TAZOB 2.25 GM 2.25 GM in DEXTROSE 5%-WATER - 50 ML IVPB SCH (06:30)
[2022-02-08] MEDS ORDERED: VANCOMYCIN/WATER FOR INJ (PEG) 750 MG/150 ML BAG IVPB ONE ×2 (07:00→09:00)
[2022-02-08 09:42] LABS: BASO % 0.5 % (0-2.0); EOS % 4.1 % (0-4.5); HEMATOCRIT 39.6 % (32.4-45.2); LYMPH % 12.5 % (8-40); MCHC 32.9 g/dl (32.0-36.0); MEAN CELL VOLUME 91.4 fl (80-96); MEAN PLT VOLUME 8.4 fl (7.5-11.1); MONO % 10.3 % (3.8-10.2); NEUT % 72.6 % (42.8-82.8); PLATELET COUNT 233 10^3/uL (134-434); RBC 4.33 M/mm3 (3.60-5.2); RDW 14.4 % (11.6-15.6); WHITE BLOOD COUNT 7.6 K/mm3 (4.0-10.0)
[2022-02-08] MEDS ORDERED: LISINOPRIL 10 MG TABLET PO SCH (10:00)
[2022-02-08] MEDS ORDERED: CEFTRIAXONE 1 GM in DEXTROSE 5%-WATER - 50 ML IVPB SCH (10:00)
[2022-02-08 10:10] LABS: CALCIUM 8.9 mg/dL (8.5-10.1)
[2022-02-08 10:11] LABS: BLOOD UREA NITROGEN 22.3 mg/dL (7-18)
[2022-02-08 10:14] LABS: CREATININE 1.3 mg/dL (0.55-1.3); PHOSPHOROUS 1.8 mg/dL (2.5-4.9)
[2022-02-08 10:15] LABS: BILIRUBIN,TOTAL 0.8 mg/dL (0.2-1); TOT PROT 6.4 g/dl (6.4-8.2)
[2022-02-08] MEDS ORDERED: APIXABAN 2.5 MG TABLET ONE (10:16)
[2022-02-08] MEDS ORDERED: FAMOTIDINE 20 MG TABLET ONE (10:16)
[2022-02-08 10:19] LABS: ALBUMIN 3.2 g/dl (3.4-5.0)
[2022-02-08] MEDS: MEROPENEM 500 MG in DEXTROSE 5%-WATER 100 ML IVPB SCH ×2 (10:52→21:25)
[2022-02-08] MEDS: FAMOTIDINE 20 MG TABLET PO SCH (10:52)
[2022-02-08] MEDS: APIXABAN 2.5 MG TABLET PO SCH ×2 (10:52→21:25)
[2022-02-08] MEDS: SODIUM CHLORIDE 1,000 ML IV SCH ×2 (13:06→21:23)
[2022-02-08] MEDS ORDERED: HEPARIN INFUSION - 25,000 UNITS/500 ML INFUS.BAG IVPB ONE (18:00)
[2022-02-08] MEDS ORDERED: HEPARIN INFUSION - 25,000 UNITS/500 ML INFUS.BAG IVPB SCH (19:15)
[2022-02-08] MEDS: ATORVASTATIN CA 20 MG TABLET (FP) PO SCH (21:25)
[2022-02-08] MEDS: NAPH,MB-DB/K PH,MBDB POWDER PACKET PO SCH (21:25)
[2022-02-09] MEDS: NAPH,MB-DB/K PH,MBDB POWDER PACKET PO SCH ×3 (06:13→21:02)
[2022-02-09] MEDS ORDERED: MEROPENEM 500 MG in DEXTROSE 5%-WATER 100 ML IVPB SCH (10:00)
[2022-02-09] MEDS: APIXABAN 2.5 MG TABLET PO SCH ×2 (10:55→21:03)
[2022-02-09] MEDS: FAMOTIDINE 20 MG TABLET PO SCH (10:55)
[2022-02-09] MEDS: MEROPENEM 500 MG in DEXTROSE 5%-WATER 100 ML IVPB SCH (17:07)
[2022-02-09] MEDS: ATORVASTATIN CA 20 MG TABLET (FP) PO SCH (21:03)
[2022-02-10] MEDS: MEROPENEM 500 MG in DEXTROSE 5%-WATER 100 ML IVPB SCH (04:30)
[2022-02-10] MEDS: NAPH,MB-DB/K PH,MBDB POWDER PACKET PO SCH (05:17)
[2022-02-10] MEDS: FAMOTIDINE 20 MG TABLET PO SCH (09:36)
[2022-02-10] MEDS: APIXABAN 2.5 MG TABLET PO SCH ×2 (09:36→21:45)
[2022-02-10] MEDS: ATORVASTATIN CA 20 MG TABLET (FP) PO SCH (21:45)
[2022-02-11] MEDS: FAMOTIDINE 20 MG TABLET PO SCH (09:38)
[2022-02-11] MEDS: APIXABAN 2.5 MG TABLET PO SCH ×2 (09:38→21:48)
[2022-02-11] MEDS ORDERED: OLANZapine 2.5 MG TABLET PO ONE (14:15)
[2022-02-11] MEDS ORDERED: LORazepam 2 MG/ML SDV VIAL IVPUSH ONE (16:25)
[2022-02-11] MEDS: QUEtiapine FUMARATE 25 MG TABLET PO SCH (21:48)
[2022-02-11] MEDS: ATORVASTATIN CA 20 MG TABLET (FP) PO SCH (21:48)
[2022-02-12] MEDS: APIXABAN 2.5 MG TABLET PO SCH ×2 (09:41→22:50)
[2022-02-12] MEDS: FAMOTIDINE 20 MG TABLET PO SCH (09:41)
[2022-02-12] MEDS ORDERED: levoFLOXacin 750 MG TABLET PO ONE (10:29)
[2022-02-12] MEDS ORDERED: METOPROLOL TARTRATE 5 MG/5 ML VIAL IVPUSH PRN (18:33)
[2022-02-12 22:11] LABS: CALCIUM 9.5 mg/dL (8.5-10.1)
[2022-02-12 22:12] LABS: BLOOD UREA NITROGEN 35.4 mg/dL (7-18); MAGNESIUM 2.2 mg/dL (1.8-2.4)
[2022-02-12 22:15] LABS: CREATININE 1.7 mg/dL (0.55-1.3)
[2022-02-12 22:16] LABS: TOT PROT 6.1 g/dl (6.4-8.2)
[2022-02-12 22:17] LABS: BILIRUBIN,TOTAL 0.4 mg/dL (0.2-1)
[2022-02-12] MEDS: ATORVASTATIN CA 20 MG TABLET (FP) PO SCH (22:50)
[2022-02-12] MEDS: QUEtiapine FUMARATE 25 MG TABLET PO SCH (22:50)
[2022-02-13] MEDS: FAMOTIDINE 20 MG TABLET PO SCH (09:41)
[2022-02-13] MEDS: APIXABAN 2.5 MG TABLET PO SCH ×2 (09:42→21:19)
[2022-02-13 11:42] LABS: CALCIUM 9.8 mg/dL (8.5-10.1)
[2022-02-13 11:43] LABS: BLOOD UREA NITROGEN 38.9 mg/dL (7-18)
[2022-02-13 11:46] LABS: CREATININE 1.6 mg/dL (0.55-1.3)
[2022-02-13 13:51] VITALS: RESP 18
[2022-02-13] MEDS: QUEtiapine FUMARATE 25 MG TABLET PO SCH (21:19)
[2022-02-13] MEDS: ATORVASTATIN CA 20 MG TABLET (FP) PO SCH (21:19)
[2022-02-14 10:56] LABS: HEMATOCRIT 41.7 % (32.4-45.2); HEMOGLOBIN 13.6 GM/dL (10.7-15.3); MCHC 32.7 g/dl (32.0-36.0); MEAN CELL VOLUME 91.7 fl (80-96); MEAN PLT VOLUME 8.4 fl (7.5-11.1); PLATELET COUNT 322 10^3/uL (134-434); RBC 4.55 M/mm3 (3.60-5.2); RDW 14.5 % (11.6-15.6); WHITE BLOOD COUNT 10.4 K/mm3 (4.0-10.0)
[2022-02-14] MEDS: FAMOTIDINE 20 MG TABLET PO SCH (11:18)
[2022-02-14] MEDS: APIXABAN 2.5 MG TABLET PO SCH ×2 (11:18→21:02)
[2022-02-14 11:22] LABS: CALCIUM 9.8 mg/dL (8.5-10.1)
[2022-02-14 11:26] LABS: CREATININE 1.5 mg/dL (0.55-1.3)
[2022-02-14] MEDS: ATORVASTATIN CA 20 MG TABLET (FP) PO SCH (21:02)
[2022-02-14] MEDS: QUEtiapine FUMARATE 25 MG TABLET PO SCH (21:02)
[2022-02-15 06:06] VITALS: TEMP 97.6
[2022-02-15] MEDS: FAMOTIDINE 20 MG TABLET PO SCH (09:39)
[2022-02-15] MEDS: APIXABAN 2.5 MG TABLET PO SCH (09:39)
[2022-02-15 12:31] LABS: CALCIUM 9.6 mg/dL (8.5-10.1)
[2022-02-15 12:32] LABS: BLOOD UREA NITROGEN 36.6 mg/dL (7-18)
[2022-02-15 12:35] LABS: CREATININE 1.5 mg/dL (0.55-1.3)
[2022-02-15 15:08] VITALS: BP 122/66; PULSE 77
== END 2022-02-15 16:47 ==
LOC: JER 17:48 → SUATTDRO 17:48 → JERBED 23:45 → UNDOADMOB 23:45 → INTOOBSV 23:45 → JERBED 02-08 01:18 → J6S 02-08 13:11 → JERBED 02-08 13:11 → J6S 02-08 14:05
PROVIDERS: ADMIT Internal Medicine; ATTEND Internal Medicine
PROC: 3E03329 Introduction of Other Anti-infective into Peripheral Vein, Percutaneous Approach (ICD-10-PCS; principal; 2022-02-08)
PROC: 3E0337Z Introduction of Electrolytic and Water Balance Substance into Peripheral Vein, Percutaneous Approach (ICD-10-PCS; 2022-02-08)
DX: N17.9 Acute kidney failure, unspecified (principal); R41.82 Altered mental status, unspecified; Z87.440 Personal history of urinary (tract) infections; R19.7 Diarrhea, unspecified; R05.9 Cough, unspecified; F03.90 Unspecified dementia, unspecified severity, without behavioral disturbance, psychotic disturbance, mood disturbance, and anxiety; R09.89 Other specified symptoms and signs involving the circulatory and respiratory systems; Z88.0 Allergy status to penicillin; Z88.2 Allergy status to sulfonamides; R30.0 Dysuria; I48.0 Paroxysmal atrial fibrillation; Z87.891 Personal history of nicotine dependence
CPT/HCPCS: 0241U-QW; 36415; 70450-TC; 71045-TC-FY; 74176-TC; 80048; 80053; 81003; 83036; 83605; 83735; 84100; 84484; 85025; 85027; 85610; 85730; 87040; 87086; 87186; 87899; 93005; 93010; 96361; 96365; 96367; 97116-GP; 97162-GP; 99285-25; C9803-CS; G0378; J1644; U0003; U0005